=== PATIENT | male | born 1950 | race Caucasian/White ===

== ENCOUNTER 2018-10-21 12:41 | Emergency (ER) | payer SELFPAY ==
[~2018-10-21] VITALS: Ht 162.6 cm; Wt 63.5 kg
[~2018-10-21 12:41] MED LIST: NORCO10T PO
[2018-10-21] MEDS ORDERED: ondansetron 4mg rapidly disintigrating tab PO ONE (13:00)
[2018-10-21] MEDS ORDERED: morphine 4 MG/ML inj SYRINge IM ONE (13:00)
--- NOTE | 2018-10-21 13:12 | NUR ---
Pt to CT
[2018-10-21 13:25] LABS: BASOPHILS % (AUTO) 0.5 % (0-1); EOSINOPHILS # (AUTO) 0.1 X10'3 (0-0.9); EOSINOPHILS % (AUTO) 2.1 % (0-6); HEMATOCRIT 43.7 % (42.0-52.0); HEMOGLOBIN 14.7 g/dl (14.0-17.9); LYMPHOCYTES # (AUTO) 1.2 X10'3 (1.1-4.8); LYMPHOCYTES % (AUTO) 17.9 % (21-51); MEAN CORPUSCULAR HEMOGLOBIN 31.5 PG (27.0-31.0); MEAN CORPUSCULAR HGB CONC 33.5 g/dL (33.0-36.5); MEAN CORPUSCULAR VOLUME 93.8 FL (78-98); MEAN PLATELET VOLUME 7.8 FL (7.4-10.4); MONOCYTES # (AUTO) 0.7 X10'3 (0-0.9); MONOCYTES % (AUTO) 10.1 % (2-12); NEUTROPHILS # (AUTO) 4.8 X10'3 (1.8-7.7); NEUTROPHILS % (AUTO) 69.4 % (42-75); PLATELET COUNT 235 X10'3 (140-440); RED BLOOD COUNT 4.66 X10'6 (4.70-6.10); RED CELL DISTRIBUTION WIDTH 13.4 % (11.5-14.5); WHITE BLOOD COUNT 6.9 X10'3 (4.5-11.0)
--- NOTE | 2018-10-21 13:28 | NUR ---
Pt returned from CT and taken strait to x-ray.
[2018-10-21 13:39] LABS: ALANINE AMINOTRANSFERASE 39 U/L (12-78); ALBUMIN 3.8 G/DL (3.4-5.0); ALBUMIN/GLOBULIN RATIO 1.1 (1.1-1.5); ALKALINE PHOSPHATASE 59 IU/L (46-116); ANION GAP 7 (8-16); ASPARTATE AMINO TRANSFERASE 32 U/L (10-37); BILIRUBIN,TOTAL 0.6 MG/DL (0.1-1.0); BLOOD UREA NITROGEN 12 MG/DL (7-18); BUN/CREATININE RATIO 10.3 (5.4-32.0); CALCIUM 8.4 MG/DL (8.5-10.1); CHLORIDE 104 MMOL/L (99-107); CREATININE 1.16 MG/DL (0.60-1.10); ETHANOL < 0.010 GM/DL (0.0-0.010); GLUCOSE 107 MG/DL (70-104); POTASSIUM 4.2 MMOL/L (3.5-5.1); SODIUM 138 MMOL/L (135-145); TOTAL CARBON DIOXIDE 26.6 MMOL/L (24-32); TOTAL PROTEIN 7.2 G/DL (6.4-8.2); eGFR 63 ML/MIN
--- NOTE | 2018-10-21 13:46 | NUR ---
Pt returned from x-ray. HR 71, O2 sat 96%
[2018-10-21 13:51] LABS: PARTIAL THROMBOPLASTIN TIME 28 SECONDS (22-32)
[2018-10-21] MEDS ORDERED: morphine 4 MG/ML inj SYRINge IV ONE (14:00)
[2018-10-21] MEDS ORDERED: HYDR-4384 PO (14:58)
[2018-10-21 15:19] VITALS: BP 151/91
== END 2018-10-21 15:32 | disposition home or self-care (01) ==
LOC: ER 12:42
DX: S52.091A Other fracture of upper end of right ulna, initial encounter for closed fracture (principal); S20.211A Contusion of right front wall of thorax, initial encounter; S40.011A Contusion of right shoulder, initial encounter; S00.81XA Abrasion of other part of head, initial encounter; J44.9 Chronic obstructive pulmonary disease, unspecified; R51 Headache; Z79.899 Other long term (current) drug therapy; W11.XXXA Fall on and from ladder, initial encounter; Y93.89 Activity, other specified; Y92.89 Other specified places as the place of occurrence of the external cause; Y99.8 Other external cause status
CPT/HCPCS: 29105; 36415; 70450; 71250; 73030; 73070; 74176; 80053; 80320; 85025; 85610; 85730; 96374; 99284; J2270; J2405

== ENCOUNTER 2018-10-23 08:07 | Emergency (ER) | payer MEDICARE, OTHER ==
[~2018-10-23] VITALS: Ht 157.5 cm; Wt 56.0 kg
[~2018-10-23 08:07] MED LIST changes: +HYDR-4384 PO
--- NOTE | 2018-10-23 08:34 | NUR ---
left hand noted to be swollen, removed/released surjit and elevated on pillow, pt states it feels better now. right radial pulse even and regular.
[2018-10-23 10:24] VITALS: BP 128/89
== END 2018-10-23 10:36 | disposition home or self-care (01) ==
LOC: ER 08:07
DX: S70.11XA Contusion of right thigh, initial encounter (principal); J44.9 Chronic obstructive pulmonary disease, unspecified; Z79.899 Other long term (current) drug therapy; W11.XXXA Fall on and from ladder, initial encounter; Y93.89 Activity, other specified; Y92.89 Other specified places as the place of occurrence of the external cause; Y99.8 Other external cause status
CPT/HCPCS: 73502; 73551; 99284

== ENCOUNTER 2018-12-14 10:05 | Emergency (ER) | payer MEDICARE, OTHER ==
[~2018-12-14] VITALS: Ht 157.5 cm; Wt 61.4 kg
[~2018-12-14 10:05] MED LIST changes: -HYDR-4384 PO
[2018-12-14 12:31] LABS: BASOPHILS % (AUTO) 0.4 % (0-1); EOSINOPHILS # (AUTO) 0.2 X10'3 (0-0.9); EOSINOPHILS % (AUTO) 1.8 % (0-6); HEMATOCRIT 43.8 % (42.0-52.0); HEMOGLOBIN 14.8 g/dl (14.0-17.9); LYMPHOCYTES # (AUTO) 0.8 X10'3 (1.1-4.8); LYMPHOCYTES % (AUTO) 8.4 % (21-51); MEAN CORPUSCULAR HGB CONC 33.9 g/dL (33.0-36.5); MEAN CORPUSCULAR VOLUME 94.4 FL (78-98); MEAN PLATELET VOLUME 7.6 FL (7.4-10.4); MONOCYTES # (AUTO) 1.7 X10'3 (0-0.9); MONOCYTES % (AUTO) 18.4 % (2-12); NEUTROPHILS # (AUTO) 6.5 X10'3 (1.8-7.7); PLATELET COUNT 259 X10'3 (140-440); RED BLOOD COUNT 4.64 X10'6 (4.70-6.10); RED CELL DISTRIBUTION WIDTH 13.2 % (11.5-14.5); WHITE BLOOD COUNT 9.1 X10'3 (4.5-11.0)
[2018-12-14 12:36] LABS: ALANINE AMINOTRANSFERASE 24 U/L (12-78); ALBUMIN 3.7 G/DL (3.4-5.0); ALBUMIN/GLOBULIN RATIO 0.7 (1.1-1.5); ALKALINE PHOSPHATASE 128 IU/L (46-116); ANION GAP 10 (8-16); ASPARTATE AMINO TRANSFERASE 20 U/L (10-37); BILIRUBIN,TOTAL 0.5 MG/DL (0.1-1.0); BLOOD UREA NITROGEN 8 MG/DL (7-18); BUN/CREATININE RATIO 10.3 (5.4-32.0); C-REACTIVE PROTEIN 19.71 MG/DL (0.0-0.5); CALCIUM 9.6 MG/DL (8.5-10.1); CHLORIDE 102 MMOL/L (99-107); CREATININE 0.78 MG/DL (0.60-1.10); GLUCOSE 106 MG/DL (70-104); POTASSIUM 4.5 MMOL/L (3.5-5.1); SODIUM 141 MMOL/L (135-145); TOTAL CARBON DIOXIDE 29.4 MMOL/L (24-32); TOTAL PROTEIN 8.8 G/DL (6.4-8.2); eGFR > 90 ML/MIN
[2018-12-14] MEDS ORDERED: CEPH-572 PO (13:36)
[2018-12-14] MEDS ORDERED: HYDROcodone/acetaminophen 10/325mg tab PO ONE (13:40)
--- NOTE | 2018-12-14 13:45 | NUR ---
NARCO GIVEN FOR PAIN CONTOL
[2018-12-14 14:00] LABS: TOTAL CELLS COUNTED 100
[2018-12-14 14:35] VITALS: BP 150/101
[2018-12-14 14:46] LABS: PLATELET ESTIMATE NORMAL
== END 2018-12-14 14:38 | disposition home or self-care (01) ==
LOC: ER 10:05
DX: M79.601 Pain in right arm (principal); J44.9 Chronic obstructive pulmonary disease, unspecified
CPT/HCPCS: 29105; 36415; 73080; 80053; 85025; 85651; 86140; 99284

== ENCOUNTER 2019-07-21 19:34 | Emergency (ER) | payer OTHER, MEDICARE ==
[~2019-07-21] VITALS: Ht 157.5 cm; Wt 61.8 kg
[2019-07-21 19:37] VITALS: BP 131/93
[2019-07-21] MEDS ORDERED: LIDOcaine 1% W/epiNEPHrine 1:200,000 10ml vial IJ ONE (20:15)
[2019-07-21] MEDS ORDERED: TETanus/Pertussis (Acell)/Diphther VAC/PF (Tdap-Adult) 0.5ml syringe IMVAC ONE (20:15)
== END 2019-07-21 21:46 | disposition home or self-care (01) ==
LOC: ER 19:35
DX: S81.812A Laceration without foreign body, left lower leg, initial encounter (principal); J44.9 Chronic obstructive pulmonary disease, unspecified; Z72.89 Other problems related to lifestyle; Z88.2 Allergy status to sulfonamides; Z79.899 Other long term (current) drug therapy; W10.8XXA Fall (on) (from) other stairs and steps, initial encounter; Y93.89 Activity, other specified; Y92.89 Other specified places as the place of occurrence of the external cause; Y99.8 Other external cause status
CPT/HCPCS: 12002; 90471; 90715; 99284

== ENCOUNTER 2019-08-03 06:24 | Emergency (ER) | payer OTHER, MEDICARE ==
[~2019-08-03] VITALS: Ht 157.5 cm; Wt 61.4 kg
[2019-08-03 07:28] VITALS: BP 155/75
== END 2019-08-03 07:29 | disposition home or self-care (01) ==
LOC: ER 06:24
DX: S81.811D Laceration without foreign body, right lower leg, subsequent encounter (principal); J44.9 Chronic obstructive pulmonary disease, unspecified; Z48.02 Encounter for removal of sutures; Z85.9 Personal history of malignant neoplasm, unspecified; Z72.89 Other problems related to lifestyle; Z88.2 Allergy status to sulfonamides; Z79.899 Other long term (current) drug therapy; W45.8XXD Other foreign body or object entering through skin, subsequent encounter
CPT/HCPCS: 99284